=== PATIENT | female | born 2000 | race Caucasian/White ===

== ENCOUNTER 2023-04-20 11:09 | Emergency (ER) | payer MEDICAID ==
[~2023-04-20] VITALS: Ht 152.4 cm; Wt 56.7 kg
[2023-04-20 11:27] VITALS: BP 119/70
[2023-04-20] MEDS ORDERED: IMIQ1CRE22 TP (12:08)
== END 2023-04-20 12:21 | disposition home or self-care (01) ==
LOC: ER 11:09
DX: N90.89 Other specified noninflammatory disorders of vulva and perineum (principal)
CPT/HCPCS: 99283

== ENCOUNTER 2023-05-27 10:09 | Emergency (ER) | payer MEDICAID ==
[~2023-05-27] VITALS: Ht 154.9 cm; Wt 56.8 kg
[~2023-05-27 10:09] MED LIST: IMIQ1CRE22 TP
[2023-05-27 10:23] VITALS: BP 115/79; PULSE 104; RESP 20; TEMP 98.3; O2SAT 100
[2023-05-27 10:51] LABS: BASOPHILS % 0.7 % (0.0-2.0); EOSINOPHILS % 1.1 % (0.0-5.0); MEAN CORPUSCULAR HEMOGLOBIN 28.1 pg (28.0-32.0); MEAN CORPUSCULAR VOLUME 84.5 fL (81.0-99.0); MEAN PLATELET VOLUME 7.2 fl (7.4-10.4); MONOCYTES % 14.9 % (2.0-8.0); NEUTROPHILS % 57.3 % (40.0-76.0); PLATELET 399 x1000/uL (130-400); RED BLOOD CELL COUNT 4.26 mill/uL (4.2-5.4)
[2023-05-27 10:59] LABS: HCG SCREEN NEGATIVE
[2023-05-27 11:02] LABS: CHLORIDE 106 mEq/L (98-107)
== END 2023-05-27 14:31 | disposition left against medical advice (07) ==
LOC: ER 10:09
DX: N93.9 Abnormal uterine and vaginal bleeding, unspecified (principal); Z53.21 Procedure and treatment not carried out due to patient leaving prior to being seen by health care provider
CPT/HCPCS: 36415; 80053; 84703; 85025; 86850; 86900; 99283

== ENCOUNTER 2023-06-28 22:43 | Emergency (ER) | payer MEDICAID ==
[~2023-06-28] VITALS: Ht 152.4 cm; Wt 59.0 kg
[2023-06-28 22:44] VITALS: O2SAT 100
[2023-06-28] MEDS ORDERED: HYDROCODONE/ACETAMINOPHEN 5/325MG TABLET PO ONE (23:30)
[2023-06-28] MEDS ORDERED: ACETAMINOPHEN 650MG/20.3ML UDC PO ONE (23:45)
[2023-06-29 00:07] LABS: HCG SCREEN NEGATIVE
[2023-06-29 01:00] VITALS: TEMP 98.8
[2023-06-29] MEDS ORDERED: IBUP-2028 MT (02:14)
[2023-06-29 02:45] VITALS: BP 100/70; PULSE 82; RESP 14
== END 2023-06-29 03:08 | disposition home or self-care (01) ==
LOC: ER 22:43
DX: S09.90XA Unspecified injury of head, initial encounter (principal); S29.9XXA Unspecified injury of thorax, initial encounter; Y08.89XA Assault by other specified means, initial encounter; Y93.89 Activity, other specified; Y92.89 Other specified places as the place of occurrence of the external cause; Y99.8 Other external cause status; Z87.19 Personal history of other diseases of the digestive system
CPT/HCPCS: 70486; 71101; 84703; 99285

== ENCOUNTER 2023-07-28 23:16 | Emergency (ER) | payer MEDICAID ==
[~2023-07-28] VITALS: Ht 152.4 cm; Wt 57.9 kg
[~2023-07-28 23:16] MED LIST changes: +IBUP-2028 MT
[2023-07-28 23:27] VITALS: BP 121/75; PULSE 120; RESP 18; TEMP 98.3; O2SAT 99
== END 2023-07-29 02:11 | disposition left against medical advice (07) ==
LOC: ER 23:16
DX: M25.559 Pain in unspecified hip (principal); Z53.21 Procedure and treatment not carried out due to patient leaving prior to being seen by health care provider
CPT/HCPCS: 93005; 99281

== ENCOUNTER 2023-09-08 11:45 | Emergency (ER) | payer MEDICAID ==
[~2023-09-08] VITALS: Ht 165.1 cm; Wt 57.0 kg
[2023-09-08 11:48] VITALS: BP 128/72; PULSE 108; RESP 18; TEMP 98.7; O2SAT 100
[2023-09-08] MEDS ORDERED: DICYCLOMINE 10 MG/5 ML ORAL SYR PO STA (12:16)
[2023-09-08] MEDS ORDERED: ONDANSETRON HCL 4MG/2ML INJ IV STA (12:16)
[2023-09-08] MEDS: ONDANSETRON HCL 4MG/2ML INJ IV NR ×2 (12:30→13:54)
[2023-09-08 12:49] LABS: BASOPHILS % 0.2 % (0.0-2.0); EOSINOPHILS % 0.6 % (0.0-5.0); HEMATOCRIT. 37.7 % (36.0-48.0); HEMOGLOBIN. 12.4 g/dL (12.0-16.0); LYMPHOCYTES % 8.6 % (20.0-50.0); MEAN CORPUSCULAR HEMOGLOBIN 27.6 pg (28.0-32.0); MEAN CORPUSCULAR HGB CONC 32.9 g/dL (31.0-37.0); MEAN CORPUSCULAR VOLUME 83.9 fL (81.0-99.0); MEAN PLATELET VOLUME 7.2 fl (7.4-10.4); MONOCYTES % 12.8 % (2.0-8.0); NEUTROPHILS % 77.8 % (40.0-76.0); PLATELET 399 x1000/uL (130-400); RED CELL DISTRIBUTION WIDTH 14.6 % (11.6-14.6); WHITE BLOOD COUNT 16.6 x1000/uL (4.5-11.0)
[2023-09-08 13:10] LABS: CHLORIDE 101 mEq/L (98-107); INDEX HEMOLYSI 1 (1-3); INDEX ICTERIC 1 (1-4); INDEX LIPEMIC 1 (1-3); POTASSIUM 3.7 mEq/L (3.5-5.1); SODIUM 133 mEq/L (136-145)
[2023-09-08 13:21] LABS: ALANINE AMINOTRANSFERASE 17 IU/L (13-61); ALBUMIN 3.3 g/dL (3.4-5.0); ASPARTATE AMINOTRANSFERASE 13 IU/L (15-37); BILIRUBIN TOTAL 0.8 mg/dL (0.1-1.0); CALCIUM 9.4 mg/dL (8.5-10.1); CARBON DIOXIDE 26 mEq/L (21-32); CREATININE 0.8 mg/dL (0.6-1.3); GLUCOSE 94 mg/dL (70-105); PROTEIN TOTAL 8.3 g/dL (6.0-8.3); UREA NITROGEN BLOOD 7 mg/dL (7-21)
[2023-09-08] MEDS ORDERED: ONDANSETRON 4MG ODT PO ONE (13:45)
[2023-09-08 13:56] LABS: HCG SCREEN NEGATIVE
== END 2023-09-08 15:25 | disposition left against medical advice (07) ==
LOC: ER 12:48
DX: R10.84 Generalized abdominal pain (principal)
CPT/HCPCS: 80053; 84703; 83690; 85025; 36415; 99283; Q0162; Z7610